=== PATIENT | female | born 1950 | race African-American/Black ===

== ENCOUNTER → 2020-03-04 | Outpatient (CLI) | payer MEDICARE ==
--- NOTE | 2020-03-04 17:26 | CARD ---
MR#: [id number] Date of Study: 03/04/2020 Ordering Physician: JAMIE MCALLISTER, Referring Physician: AJMIE MCALLISTER, Tech: Christine Melvin [facility] APPROVED REPORT EXAM: Two-dimensional and M-mode echocardiogram with Doppler and color Doppler. Other Information Quality : Good INDICATION Atrial Fibrillation 2D DIMENSIONS RVDd2.2 (2.9-3.5cm)Left Atrium(2D)3.4 (1.6-4.0cm) IVSd0.8 (0.7-1.1cm)Aortic Root(2D)2.3 (2.0-3.7cm) LVDd4.7 (3.9-5.9cm)LVOT Diameter2.0 (1.8-2.4cm) PWd0.6 (0.7-1.1cm)LVDs2.4 (2.5-4.0cm) FS (%) 30.0 %SV81.7 ml LVEF(%)60.0 (>50%) Aortic Valve AoV Peak Manuel.162.4cm/sAoV VTI38.8cm AO Peak GR.10.6mmHgLVOT Peak Manuel.155.6cm/s AO Mean GR.6mmHgAVA (VMAX)2.88cm2 SONIA (VTI)2.90cm2 Mitral Valve MV E Mdzkdpir050.1cm/sMV DECEL [id number] MV A Bvqkvdpv293.4cm/sE/A Ratio1.1 Tricuspid Valve TR P. Zidcally274ui/sRAP PETRVEKV0ywHv TR Peak Gr.77hvRjQKTD10sjIh Pulmonary Vein S1 Lamslirh62.2cm/sD2 Nowmnyie03.8cm/s LEFT VENTRICLE The left ventricle is normal size. There is normal left ventricular wall thickness. The left ventricu lar systolic function is normal and the ejection fraction is within normal range. The Ejection Fracti on is 55-60%. There is normal LV segmental wall motion. Transmitral Doppler flow pattern is Grade I-a bnormal relaxation pattern. RIGHT VENTRICLE The right ventricle is normal size. The right ventricular systolic function is normal. ATRIA The left atrium size is normal. The right atrium size is normal. The interatrial septum is intact wit h no evidence for an atrial septal defect or patent foramen ovale as noted on 2-D or Doppler imaging. AORTIC VALVE The aortic valve is calcified but opens well. Doppler and Color Flow revealed no significant aortic r egurgitation. There is no significant aortic valvular stenosis. MITRAL VALVE The mitral valve is calcified but opens well. Mitral annular calcification is mild to moderate. There is no evidence of mitral valve prolapse. There is no mitral valve stenosis. Doppler and Color Flow r evealed trace mitral valve regurgitation. TRICUSPID VALVE The tricuspid valve is normal in structure and function. Doppler and Color Flow revealed trace tricus pid regurgitation. The PA pressure was estimated at 21 mmHg. There is no tricuspid valve stenosis. PULMONIC VALVE The pulmonic valve is not well visualized. Doppler and Color Flow revealed mild pulmonic valvular reg urgitation. There is no pulmonic valvular stenosis. GREAT VESSELS The aortic root is normal in size. The ascending aorta is moderately dilated at 3.5 cm. The IVC is no rmal in size and collapses >50% with inspiration. PERICARDIAL EFFUSION There is no evidence of significant pericardial effusion. Critical Notification Critical Value: No <Conclusion> The left ventricle is normal size. The left ventricular systolic function is normal and the ejection fraction is within normal range. The Ejection Fraction is 55-60%. Doppler and Color Flow revealed no significant aortic regurgitation. There is no significant aortic valvular stenosis. Doppler and Color Flow revealed trace mitral valve regurgitation. Doppler and Color Flow revealed trace tricuspid regurgitation. The PA pressure was estimated at 21 mmHg. Doppler and Color Flow revealed mild pulmonic valvular regurgitation. The ascending aorta is moderately dilated at 3.5 cm. Signed by : Richie Marshall MD Electronically Approved : 03/04/2020 17:25:53
== END | disposition home or self-care (01) ==
LOC: ECHO 09:59
PROVIDERS: ATTEND Internal Medicine Cardiovascular Disease
DX: I08.8 Other rheumatic multiple valve diseases (principal); I48.91 Unspecified atrial fibrillation
CPT/HCPCS: 93306